=== PATIENT | male | born 1945 | race Caucasian/White ===

== ENCOUNTER → 2018-03-13 | Outpatient (CLI) | payer MEDICARE, BC ==
[2018-03-13 09:17] VITALS: BP 117/66; PULSE 63; RESP 20; TEMP 98.2; BMI 28.8
--- NOTE | 2018-03-13 09:36 | P.PN ---
Subjective Progress Note Date: 03/13/18 DATE OF SERVICE: 03/13/2018 CHIEF COMPLAINT: History of gastric bypass. HISTORY OF PRESENT ILLNESS: Ezequiel Cotter is a 71-year-old gentleman with a prior history of Hayder-en-Y gastric bypass performed in March 2012. He is now 4 years out. His initial weight was 257 pounds for his 5-foot 6-inch frame. His ideal body weight is 154 pounds. Today he comes in weighing 183 pounds. In one year he has already gained 8 pounds. Percent excess weight loss is maintained at 72%. Total weight loss is 74 pounds. Body mass index has been reduced from 41.6 down to 29.6. No reports of fevers or chills. No reports of abdominal pain. He does have history of constipation. He has intermittent blood in the stools. Upon further discussion with his , he has started to eat high-carbohydrate snacks. He also reports new-onset tremors. Last seen 08/23/16. Patient comes in with vomiting since June 2017. He went to the ER and had an upper endoscopy over 30 days ago. He was diagnosed yeast esophagitis. His symptoms are worse. PAST MEDICAL HISTORY: Morbid obesity Diabetes mellitus, type II, resolved Osteoarthritis of the knees, hips, and back, resolved Hypertension, resolved GERD, resolved Panniculitis Diverticulosis Gastroparesis, resolved PAST SURGICAL HISTORY EGD Colonoscopy Bilateral knee arthroscopy Cholecystectomy Bilateral cataract removal with lens replacement Left carpal tunnel release Bilateral retinal surgery Hayder-en-Y gastric bypass Paraesophageal hiatal hernia repair Panniculectomy. MEDICATIONS: 1. Vitamin B complex. 2. Flomax. 3. Cialis. 4. Multivitamin. 5. Neurontin. 6. Cymbalta. 7. Vitamin B12. 8. Calcium citrate. ALLERGIES: NONE. FAMILY HISTORY Strong family history of super morbid obesity. Mother . Father . Lung cancer and squamous cell cancer. SOCIAL HISTORY Denies IV drug use, ETOH, or tobacco use. Marital status is . Current occupation is retired. Has supportive family/friend network. College educated. REVIEW OF SYSTEMS: CONSTITUTIONAL: [place]y body weight of 154 pounds. Original weight of 257 pounds. Total weight loss maintained of 74 pounds. Percent excess weight loss 72%. BMI point reduction from 41.6 down to 29.6. Otherwise, 12 points. Weight gain of 8 pounds in one year. GASTROINTESTINAL: No reports of gastroesophageal reflux disease. Has intermittent blood in the stools. ENDOCRINE: Prior history of diabetes, resolved. MUSCULOSKELETAL: New onset lower neck pain. HEENT: Has headaches/migraines. Has trouble with vision. Denies troubles with hearing. Respiratory: Denies dypnea on exertion. Has daytime somnolence. Cardiac: Denies orthopnea or paroxysmal nocturnal dyspnea or history of palpitations. Psychiatric: Denies suicidal ideation. Vascular: Denies amaurosis fugax, stroke. Hematologic: Denies pulmonary embolisms, deep vein thrombosis, anemia, family coagulopathy, or blood transfusion. Neurologic: Denies dizziness, fainting, or weakness. Has numbness and tingling of feet. PHYSICAL EXAM: VITAL SIGNS: 97.3, 91, 16, 150/96, 5 feet 6 inches, 183 pounds. Body mass index 29.6. GENERAL: Well-developed male in no acute distress. ABDOMEN: Soft, nontender. No palpable incisional hernias. MUSCULOSKELETAL: No clubbing, cyanosis. GENERAL: Well-developed pleasant male in no acute distress. HEENT: No sclera icterus. Extraocular movements grossly intact. Moist buccal mucosa. Head is atraumatic, normocephalic. Hears conversational speech. No nasal drainage. NECK: Supple without lymphadenopathy. No JV distention. CHEST: Non-labored respirations and equal bilateral excursions. CARDIOVASCULAR: Regular rate and rhythm. Palpable 2+ radial pulses. NEUROLOGIC: No focal or lateralizing signs. PSYCH: Appropriate affect. Alert and oriented to person, place and time. LABS: Hemoglobin normal at 14.3. Hemoglobin A1c normal at 5.3. Percent iron saturation low at 16.2. Ferritin low at 9. Thiamine elevated at 125. Parathyroid hormone elevated at 127.9. Vitamin D normal at 37.2. Selenium elevated at 183. ASSESSMENT: 1. Prior history of morbid obesity due to excess calories. 2. Body mass index reduced from 41.6 down to 29.6. 3. Status post Hayder-en-Y gastric bypass. 4. Diabetes type 2, resolved. 5. Hypertension, resolved. 6. Dietary surveillance and counseling. 7. Thiamine toxicity. 8. Secondary hyperparathyroidism. 9. Selenium toxicity. 10. Esopohageal stricture. PLAN: 1. Recommend upper endoscopy with balloon for esophageal stricture. 2. Liquid diet only. 3. Take an antacid in the interim. 4. Recommend bariatric labs. Objective - Vital Signs Vital signs: Vital Signs Temp 98.2 F 03/13/18 09:06 Pulse 63 03/13/18 09:06 Resp 20 03/13/18 09:06 BP 117/66 03/13/18 09:06 Pulse Ox Intake & Output 03/12/18 03/13/18 03/13/18 18:59 06:59 18:59 Weight 81.148 kg
[2018-03-13 11:12] LABS: HGB 12.5 gm/dL (13.0-17.5); MCH 28.1 pg (25.0-35.0); MCHC 32.8 g/dL (31.0-37.0); MCV 85.8 fL (80.0-100.0); Mean Platelet Volume 7.5; Platelet Count 172 k/uL (150-450); RBC 4.43 m/uL (4.30-5.90); RDW 15.5 % (11.5-15.5); WBC 6.4 k/uL (3.8-10.6)
[2018-03-13 11:14] LABS: INR 1.2 (<1.2); Partial Thromboplastin Time 26.3 sec (22.0-30.0); Prothrombin Time 11.2 sec (9.0-12.0)
[2018-03-13 11:23] LABS: ALT 26 U/L (21-72); AST 34 U/L (17-59); Albumin 4.1 g/dL (3.5-5.0); Alkaline Phosphatase 100 U/L (38-126); Anion Gap 13 mmol/L; Blood Urea Nitrogen 11 mg/dL (9-20); Calcium 9.3 mg/dL (8.4-10.2); Carbon Dioxide 28 mmol/L (22-30); Chloride 104 mmol/L (98-107); Cholesterol 99 mg/dL (<200); Glucose 81 mg/dL (74-99); HDL Cholesterol 39 mg/dL (40-60); LDL Cholesterol,Calculated 46 mg/dL (0-99); Magnesium 2.2 mg/dL (1.6-2.3); Phosphorus 3.7 mg/dL (2.5-4.5); Potassium 4.4 mmol/L (3.5-5.1); Sodium 145 mmol/L (137-145); Total Bilirubin 0.5 mg/dL (0.2-1.3); Total Protein 6.9 g/dL (6.3-8.2); Triglycerides 69 mg/dL (<150)
[2018-03-13 16:58] LABS: Iron Saturation 14.42 (15.00-50.00)
[2018-03-13 17:05] LABS: Parathyroid Hormone Intact 118.1 pg/mL (14.0-72.0)
[2018-03-13 17:09] LABS: Folate, Serum >24.0 ng/mL; Vitamin D 25 Hydroxy 26.6 ng/mL (30.0-100.0)
[2018-03-13 20:10] LABS: Hemoglobin A1C 5.3 % (4.0-6.0)
[2018-03-17 06:35] LABS: Vitamin A 44 ug/dL (38-106)
[2018-03-17 06:59] LABS: Vitamin B1 60 ug/L (38-122)
[2018-03-17 17:22] LABS: Zinc, Serum 65 ug/dL (60-130)
== END | disposition home or self-care (01) ==
LOC: BARWHC3 08:31
PROVIDERS: ATTEND Surgery Plastic and Reconstructive Surgery
DX: Z09 Encounter for follow-up examination after completed treatment for conditions other than malignant neoplasm (principal); E66.01 Morbid (severe) obesity due to excess calories; T45.2X1A Poisoning by vitamins, accidental (unintentional), initial encounter; T56.891A Toxic effect of other metals, accidental (unintentional), initial encounter; N25.81 Secondary hyperparathyroidism of renal origin; K22.2 Esophageal obstruction; R25.1 Tremor, unspecified; M79.3 Panniculitis, unspecified; Z90.49 Acquired absence of other specified parts of digestive tract; Z98.84 Bariatric surgery status; Z68.29 Body mass index [BMI] 29.0-29.9, adult; Z71.3 Dietary counseling and surveillance; Z79.899 Other long term (current) drug therapy
CPT/HCPCS: 84255; 84134; 84425; 80061; 80053; 82607; 82728; 82525; 82746; 83540; 83550; 83735; 84100; 84443; 84590; 84630; 85027; 85610; 85730; 82306; 83970; 83036; 97803; 36415; G0463; 99211

== ENCOUNTER 2018-03-17 09:05 | Day surgery (SDC) | payer MEDICARE, BC ==
[2018-03-14 08:48] VITALS: BMI 28.7
--- NOTE | 2018-03-17 07:37 | P.GSHP ---
History of Present Illness H&P Date: 03/17/18 CHIEF COMPLAINT: GERD HISTORY OF PRESENT ILLNESS: The patient is a 73-year-old male who presents reports gastroesophageal reflux disease. Upper endoscopy was offered for further evaluation and management. PAST MEDICAL HISTORY: Please see list. PAST SURGICAL HISTORY: Please see list. MEDICATIONS: Please see list. ALLERGIES: Please see list. SOCIAL HISTORY: No illicit drug use FAMILY HISTORY: No reports of Crohn disease or ulcerative colitis. REVIEW OF ORGAN SYSTEMS: CONSTITUTIONAL: No reports of fevers or chills. GI: Denies any blood in stools or constipation. PHYSICAL EXAM: VITAL SIGNS: Stable GENERAL: Well-developed and pleasant in no acute distress. HEENT: No scleral icterus. Extraocular movements grossly intact. Moist buccal mucosa. NECK: Supple without lymphadenopathy. CHEST: Unlabored respirations. Equal bilateral excursions. CARDIOVASCULAR: Regular rate and rhythm. Distal 2+ pulses. ABDOMEN: Soft, nondistended. MUSCULOSKELETAL: No clubbing, cyanosis, or edema. ASSESSMENT: 1. Gastroesophageal reflux disease PLAN: 1. Recommend proceeding with an upper endoscopy Past Medical History Past Medical History: Cancer, Chest Pain / Angina, Diabetes Mellitus, GERD/ Reflux, Skin Disorder, Sleep Apnea/CPAP/BIPAP Additional Past Medical History / Comment(s): hx skin cancer. recent stress test neg per spouse, no cpap used, hx hiatal hernia, constipation, no meds for diabetes since wt loss-watches diet now, productive cough/choking and vomiting, "blood disorder yrs ago when in service"-spouse not sure what, bladder does not empty completely History of Any Multi-Drug Resistant Organisms: None Reported Past Surgical History: Bariatric Surgery, Cholecystectomy, Orthopedic Surgery Additional Past Surgical History / Comment(s): Gastric Bypass with repair of hiatal hernia, mariaelena carpal tunnel, mariaelena cataracts Past Anesthesia/Blood Transfusion Reactions: Previous Problems w/ Anesthesia Additional Past Anesthesia/Blood Transfusion Reaction / Comment(s): diff waking up after one surgery Smoking Status: Former smoker - Past Family History Father Family Medical History: Cancer Additional Family Medical History / Comment(s): skin cancer, arthritis, Mother Family Medical History: Cancer Medications and Allergies Home Medications Medication Instructions Recorded Confirmed Type Multivitamins, Thera [Multivitamin 1 each PO DAILY 05/19/14 03/14/18 History (formulary)] Tamsulosin HCl [Flomax] 0.8 mg PO DAILY 09/21/15 03/14/18 History Aspirin 81 mg PO DAILY 03/13/18 03/14/18 History Docusate [Colace] 100 mg PO DAILY PRN 03/13/18 03/14/18 History Ranitidine HCl [Zantac] 150 mg PO QAM 03/13/18 03/14/18 History Allergies Allergy/AdvReac Type Severity Reaction Status Date / Time No Known Allergies Allergy Verified 03/14/18 08:33
[~2018-03-17 09:05] MED LIST: LACTATED RINGERS 1,000 ML IV SCH
[2018-03-17 10:22] VITALS: TEMP 97.6
[2018-03-17] MEDS ORDERED: LIDOCAINE 1% 20 ML VIAL (10MG/ML) FOR IV START INTRADERMA ONE (10:22)
[2018-03-17] MEDS ORDERED: PROPOFOL 10 MG/ML 20 ML VIAL IV ONE (10:33)
[2018-03-17] MEDS ORDERED: fentaNYL (PF) 50 MCG/ML 2 ML AMP ONE (10:33)
[2018-03-17] MEDS ORDERED: LIDOCAINE 1% INJ 10MG/ML (20 ML MDV) ONE (10:33)
--- NOTE | 2018-03-17 10:46 | P.PCN ---
Date of Procedure: 03/17/18 Description of Procedure: PREOPERATIVE DIAGNOSIS: Dysphagia. s/p Hayder-en-y gastric bypass. Nausea with vomiting. Epigastric abdominal pain POSTOPERATIVE DIAGNOSIS: Dysphagia. s/p Hayder-en-y gastric bypass. Nausea with vomiting. Epigastric abdominal pain Esophageal dysmotility Hiatal hernia OPERATION: Esophagogastrojejunoscopy with balloon dilatation 20 mm. SURGEON: Cassie Toro MD ANESTHESIA: MAC. INDICATIONS: The patient is a 73-year-old female who presents with a history of dysphagia, gastric bypass including new-onset nausea and vomiting. Benefits and risks of the procedure were described. Informed consent was obtained. DESCRIPTION: The patient was brought into the endoscopy suite and laid in the left lateral decubitus position. After a timeout was confirmed, the procedure was initiated. An Olympus gastroscope was passed along the posterior oropharynx down to the distal esophagus where the squamocolumnar junction was unremarkable. The gastric pouch was entered. A gastrojejunal stricture of 18 mm was found as the adult gastroscope was 9.5 mm in size. A [employer] balloon dilator was placed through the scope. Final insufflation up to 20 mm was performed with a total of 2 minutes. The scope was advanced up to 60 cm from the incisors into the Hayder limb. The mucosa of the gastrojejunal anastomosis was intact. No chronic gastrojejunal marginal ulcer was encountered. No full-thickness injury was encountered. The GI tract was desufflated. The patient tolerated the procedure well. FINDINGS: Squamocolumnar junction unremarkable Stricture of approximately 18 mm encountered. No chronic gastrojejunal ulceration encountered. Successful balloon dilatation to 20 mm. Hiatal hernia, 2 cm Tertiary contractions of the esophagus Gastric pouch 3 cm. RECOMMENDATIONS: Upper endoscopy as needed Recommend esophageal manometry Plan - Discharge Summary New Discharge Prescriptions: No Action Multivitamins, Thera [Multivitamin (formulary)] 1 each PO DAILY Tamsulosin HCl [Flomax] 0.8 mg PO DAILY Ranitidine HCl [Zantac] 150 mg PO QAM Docusate [Colace] 100 mg PO DAILY PRN PRN Reason: Constipation Aspirin 81 mg PO DAILY Discharge Medication List Multivitamins, Thera [Multivitamin (formulary)] 1 each PO DAILY 05/19/14 [ History] Tamsulosin HCl [Flomax] 0.8 mg PO DAILY 09/21/15 [History] Aspirin 81 mg PO DAILY 03/13/18 [History] Docusate [Colace] 100 mg PO DAILY PRN 03/13/18 [History] Ranitidine HCl [Zantac] 150 mg PO QAM 03/13/18 [History]
[2018-03-17 11:14] VITALS: BP 109/66; PULSE 50; RESP 16
== END 2018-03-17 11:38 | disposition home or self-care (01) ==
LOC: ORWHC2ENDO 09:05
PROVIDERS: ATTEND Surgery Plastic and Reconstructive Surgery
DX: K31.89 Other diseases of stomach and duodenum (principal); K22.4 Dyskinesia of esophagus; K44.9 Diaphragmatic hernia without obstruction or gangrene; Z98.84 Bariatric surgery status; E11.9 Type 2 diabetes mellitus without complications; G47.33 Obstructive sleep apnea (adult) (pediatric); Z99.89 Dependence on other enabling machines and devices; Z79.82 Long term (current) use of aspirin; Z79.899 Other long term (current) drug therapy; Z85.828 Personal history of other malignant neoplasm of skin; Z87.891 Personal history of nicotine dependence
CPT/HCPCS: 43245; J2001; J3010; J2704; C1726

== ENCOUNTER → 2018-09-03 | Outpatient (CLI) | payer MEDICARE, BC ==
--- NOTE | 2018-09-03 16:28 | P.PN ---
Subjective Progress Note Date: 09/03/18 HPI: He has chronic cough and severe. He has severe fatigue. He has gained 7 pounds. He was evaluated by the laboratory inspector. He is yet to be evaluated by the lung doctor. ABDOMEN: Soft, nontender ASSESSMENT: 1. Morbid obesity 2. s/p gastric bypass PLAN: 1. Recommend sleep evaluation 2. Agree with lung doctor assessment 3. Recommend bariatric labs.
[2018-09-03 16:38] VITALS: BP 129/68; PULSE 54; TEMP 97.8; BMI 29.7
[2018-09-03 17:07] LABS: HCT 48.4 % (39.0-53.0); HGB 16.4 gm/dL (13.0-17.5); MCH 33.8 pg (25.0-35.0); MCHC 33.8 g/dL (31.0-37.0); MCV 99.9 fL (80.0-100.0); Macrocytosis Slight; Mean Platelet Volume 7.7; Platelet Count 169 k/uL (150-450); RBC 4.85 m/uL (4.30-5.90); RDW 14.1 % (11.5-15.5); WBC 7.8 k/uL (3.8-10.6)
[2018-09-03 17:17] LABS: INR 1.2 (<1.2); Partial Thromboplastin Time 26.3 sec (22.0-30.0); Prothrombin Time 11.4 sec (9.0-12.0)
[2018-09-04 03:36] LABS: Iron Saturation 17.97 (15.00-50.00)
[2018-09-04 03:45] LABS: Vitamin D 25 Hydroxy 63.1 ng/mL (30.0-100.0)
[2018-09-04 04:30] LABS: Albumin 4.2 g/dL (3.80-4.90); Albumin/Globulin Ratio 1.91 (1.20-2.10); Anion Gap 5.3 mmol/L (4.00-12.00); Calcium 8.8 mg/dL (8.7-10.3); Carbon Dioxide 28.7 mmol/L (21.6-31.8); Folate, Serum 21.2 ng/mL; Globulin 2.2 g/dL (2.1-3.7); LDL Cholesterol,Calculated 31.8 mg/dL (0.0-131.0); Parathyroid Hormone Intact 146.9 pg/mL (14.0-72.0); Phosphorus 3.7 mg/dL (2.4-5.1); Potassium 4.3 mmol/L (3.5-5.5); Total Bilirubin 0.4 mg/dL (0.3-1.2); Total Protein 6.4 g/dL (6.2-8.2); VLDL Calculation 13.2 mg/dL (5.00-40.00)
[2018-09-04 12:21] LABS: Zinc, Serum 62 ug/dL (60-130)
[2018-09-05 05:45] LABS: Vitamin A 42 ug/dL (38-106)
[2018-09-05 12:02] LABS: Vitamin B1 96 ug/L (38-122)
== END | disposition home or self-care (01) ==
LOC: BARWHC3 15:09
PROVIDERS: ATTEND Surgery Plastic and Reconstructive Surgery
DX: E66.01 Morbid (severe) obesity due to excess calories (principal); E21.1 Secondary hyperparathyroidism, not elsewhere classified; E89.1 Postprocedural hypoinsulinemia; D50.9 Iron deficiency anemia, unspecified; K90.9 Intestinal malabsorption, unspecified; E55.9 Vitamin D deficiency, unspecified; K76.9 Liver disease, unspecified; K50.90 Crohn's disease, unspecified, without complications; N19 Unspecified kidney failure; Z68.29 Body mass index [BMI] 29.0-29.9, adult; Z98.84 Bariatric surgery status
CPT/HCPCS: 84255; 84134; 84425; 80061; 80053; 82607; 82728; 82525; 82746; 83540; 83550; 83735; 84100; 84443; 84590; 84630; 85027; 85610; 85730; 82306; 83970; 83036; 36415; G0463; 99211

== ENCOUNTER → 2019-11-18 | Outpatient (CLI) | payer BC, MEDICARE ==
--- NOTE | 2019-11-18 17:49 | P.PN ---
Subjective Progress Note Date: 11/18/19 He came in with a new pacemeaker. He is seeing Dr. Miller for new immune deficiency. He reports vomiting for 2 days in a row. Soft foods is not a problem. He has trouble with textured foods. He has 10 pounds weight gain in 5 years. He has chronic clearing of his throat. Weight loss of 80 pounds. She is seeing Stephanie Baxter. He reports lower abdominal pain. PLAN: 1. Upper scope 2. Recommend labs 3. Recommend esophagram
[2019-11-18 18:11] VITALS: BP 126/82; PULSE 76; RESP 16; TEMP 97.2; BMI 32.1
== END | disposition home or self-care (01) ==
LOC: BARWHC3 15:09
PROVIDERS: ATTEND Surgery Plastic and Reconstructive Surgery
DX: R11.10 Vomiting, unspecified (principal); R10.30 Lower abdominal pain, unspecified
CPT/HCPCS: 99211

== ENCOUNTER → 2019-12-18 | Outpatient (CLI) | payer MEDICARE ==
[2019-12-18 16:36] LABS: HCT 50.4 % (39.0-53.0); HGB 16.8 gm/dL (13.0-17.5); MCH 32.6 pg (25.0-35.0); MCHC 33.4 g/dL (31.0-37.0); MCV 97.8 fL (80.0-100.0); Platelet Count 159 k/uL (150-450); RBC 5.15 m/uL (4.30-5.90); RDW 13.9 % (11.5-15.5); WBC 8.2 k/uL (3.8-10.6)
[2019-12-18 16:52] LABS: Partial Thromboplastin Time 25.1 sec (22.0-30.0); Prothrombin Time 10.2 sec (9.0-12.0)
[2019-12-18 23:43] LABS: Hemoglobin A1C 5.1 % (4.0-6.0)
[2019-12-19 00:13] LABS: % Iron Saturation 36.3 (15.00-50.00); Albumin/Globulin Ratio 1.6 (1.60-3.17); Anion Gap 9.8 mmol/L (4.00-12.00); Calcium 8.9 mg/dL (8.7-10.3); Carbon Dioxide 26.2 mmol/L (21.6-31.8); Chol/HDL Ratio 3.24; Globulin 2.5 g/dL (1.6-3.3); LDL Cholesterol,Calculated 41.2 mg/dL (0.0-131.0); Magnesium 1.8 mg/dL (1.5-2.4); Non-African American GFR(CKD) 73.3 (60.0-200.0); Phosphorus 3.7 mg/dL (2.4-5.1); Potassium 3.8 mmol/L (3.5-5.5); Total Bilirubin 0.3 mg/dL (0.3-1.2); Total Protein 6.5 g/dL (6.2-8.2); VLDL Calculation 34.8 mg/dL (5.00-40.00)
[2019-12-19 00:21] LABS: Ferritin 80.7 ng/mL (22.0-322.0)
[2019-12-19 00:53] LABS: Folate, Serum 19.3 ng/mL
[2019-12-21 12:49] LABS: Zinc, Serum 59 ug/dL (60-130)
[2019-12-22 08:06] LABS: Vitamin A 62 ug/dL (38-106)
== END | disposition home or self-care (01) ==
LOC: LABWHC1 15:50
PROVIDERS: ATTEND Surgery Plastic and Reconstructive Surgery
DX: E66.01 Morbid (severe) obesity due to excess calories (principal); E21.1 Secondary hyperparathyroidism, not elsewhere classified; E89.1 Postprocedural hypoinsulinemia; D50.9 Iron deficiency anemia, unspecified; K90.9 Intestinal malabsorption, unspecified; E55.9 Vitamin D deficiency, unspecified; K76.9 Liver disease, unspecified; N19 Unspecified kidney failure; K50.90 Crohn's disease, unspecified, without complications
CPT/HCPCS: 36415; 80053; 80061; 82306; 82525; 82607; 82728; 82746; 83036; 83540; 83550; 83735; 83970; 84100; 84134; 84255; 84425; 84443; 84590; 84630; 85027; 85610; 85730

== ENCOUNTER 2019-12-21 06:11 | Day surgery (SDC) | payer MEDICARE ==
[2019-12-17 10:00] VITALS: BMI 34.1
--- NOTE | 2019-12-20 14:12 | P.GSHP ---
History of Present Illness H&P Date: 12/21/19 CHIEF COMPLAINT: GERD HISTORY OF PRESENT ILLNESS: The patient is a 74-year-old male who presents reports gastroesophageal reflux disease. Upper endoscopy was offered for further evaluation and management. PAST MEDICAL HISTORY: Please see list. PAST SURGICAL HISTORY: Please see list. MEDICATIONS: Please see list. ALLERGIES: Please see list. SOCIAL HISTORY: No illicit drug use FAMILY HISTORY: No reports of Crohn disease or ulcerative colitis. REVIEW OF ORGAN SYSTEMS: CONSTITUTIONAL: No reports of fevers or chills. GI: Denies any blood in stools or constipation. PHYSICAL EXAM: VITAL SIGNS: Stable GENERAL: Well-developed and pleasant in no acute distress. HEENT: No scleral icterus. Extraocular movements grossly intact. Moist buccal mucosa. NECK: Supple without lymphadenopathy. CHEST: Unlabored respirations. Equal bilateral excursions. CARDIOVASCULAR: Regular rate and rhythm. Distal 2+ pulses. ABDOMEN: Soft, nondistended. MUSCULOSKELETAL: No clubbing, cyanosis, or edema. ASSESSMENT: 1. Gastroesophageal reflux disease PLAN: 1. Recommend proceeding with an upper endoscopy Past Medical History Past Medical History: Cancer, Chest Pain / Angina, Diabetes Mellitus, GERD/Reflux, Skin Disorder, Sleep Apnea/CPAP/BIPAP Additional Past Medical History / Comment(s): productive cough/choking and vomiting,spouse not sure why taking gamunex injections or augmentin, hx skin cancer. recent stress test, no cpap used, hx hiatal hernia, constipation, no meds for diabetes since wt loss-watches diet now, "blood disorder yrs ago when in service"-spouse not sure what, bladder does not empty completely History of Any Multi-Drug Resistant Organisms: None Reported Past Surgical History: Bariatric Surgery, Cholecystectomy, Orthopedic Surgery, Pacemaker Additional Past Surgical History / Comment(s): Gastric Bypass with repair of hiatal hernia, mraiaelena carpal tunnel, mariaelena cataracts,pacemaker 10-08-19 dr natarajan,knee surgery Past Anesthesia/Blood Transfusion Reactions: Previous Problems w/ Anesthesia Additional Past Anesthesia/Blood Transfusion Reaction / Comment(s): diff waking up after one surgery Type of Cardiac Device: Permanent Pacemaker Device Placement Date:: 10-08-19 Smoking Status: Former smoker - Past Family History Father Family Medical History: Cancer Additional Family Medical History / Comment(s): skin cancer, arthritis, Mother Family Medical History: Cancer Medications and Allergies Home Medications Medication Instructions Recorded Confirmed Type Multivitamins, Thera [Multivitamin 1 each PO DAILY 05/19/14 12/17/19 History (formulary)] Tamsulosin HCl [Flomax] 0.8 mg PO DAILY 09/21/15 12/17/19 History Aspirin 81 mg PO DAILY 03/13/18 12/17/19 History Calcium Carbonate [Calcium] 600 mg PO BID #60 tablet 04/02/18 12/17/19 Rx Iron 65 mg PO BID 11/19/19 12/17/19 History Amoxic-Pot Clav 875-125Mg 2 tab PO MOWEFR 12/17/19 12/17/19 History [Augmentin 875-125] Gamunex Injections 1 dose SQ Q30D 12/17/19 12/17/19 History Allergies Allergy/AdvReac Type Severity Reaction Status Date / Time No Known Allergies Allergy Verified 12/17/19 09:50
[~2019-12-21 06:11] MED LIST changes: +LIDOCAINE 1% 20 ML VIAL (10MG/ML) FOR IV START INTRADERMA PRN; +MIDAZOLAM 2 MG/2 ML VIAL IV PRN
[2019-12-21 06:47] VITALS: TEMP 97.2
[2019-12-21 06:53] LABS: Glucose,Whole Blood 83 mg/dL (75-99)
[2019-12-21] MEDS ORDERED: LIDOCAINE 1% INJ 10MG/ML (20 ML MDV) ONE (07:16)
[2019-12-21] MEDS ORDERED: PROPOFOL 10 MG/ML 20 ML VIAL IV ONE (07:16)
[2019-12-21 07:42] VITALS: PULSE 61; RESP 16
[2019-12-21 07:51] VITALS: BP 116/80
--- NOTE | 2019-12-21 09:17 | P.PCN ---
Date of Procedure: 12/21/19 Description of Procedure: PREOPERATIVE DIAGNOSIS: Dysphagia. Gastroesophageal reflux disease Epigastric abdominal pain POSTOPERATIVE DIAGNOSIS: Dysphagia. Gastroesophageal reflux disease Epigastric abdominal pain Gastric ulcer Gastrojejunal obstruction Diaphragmatic hiatal hernia 2 cm OPERATION: Esophagogastrojejunoscopy with balloon dilatation from 15 to 20 mm. SURGEON: Cassie Toro MD ANESTHESIA: MAC. INDICATIONS: The patient is a 74-year-old male who presents with a history of dysphagia and gastroesophageal reflux disease. Benefits and risks of the procedure were described. Informed consent was obtained. DESCRIPTION: The patient was brought into the endoscopy suite and laid in the left lateral decubitus position. After a timeout was confirmed, the procedure was initiated. An Olympus gastroscope was passed along the posterior oropharynx down to the distal esophagus where the squamocolumnar junction was unremarkable. The gastric pouch was entered. A gastrojejunal stricture of 15 mm was found as the adult gastroscope was 9.5 mm in size. A BRAIN balloon dilator was placed through the scope. Final insufflation up to 20 mm was performed with a total of 2 minutes. The scope was advanced up to 60 cm from the incisors into the Hayder limb. The mucosa of the gastrojejunal anastomosis was intact. A gastric ulcer was encountered in the pouch. No full-thickness injury was encountered. The GI tract was desufflated. The patient tolerated the procedure well. FINDINGS: Squamocolumnar junction unremarkable at 33 cm. Stricture of approximately 15 mm encountered. Superficial gastric ulcer without bleeding Successful balloon dilatation to 20 mm. Diaphragmatic hiatus at 35 cm. Diaphragmatic hiatal hernia 2 cm RECOMMENDATIONS: 1. Start omeprazole of at least 4 weeks. 2. Discontinue NSAIDs Plan - Discharge Summary Discharge Rx Participant: No New Discharge Prescriptions: New Omeprazole [PriLOSEC] 40 mg PO DAILY #30 cap Continue Multivitamins, Thera [Multivitamin (formulary)] 1 each PO DAILY Tamsulosin HCl [Flomax] 0.8 mg PO DAILY Calcium Carbonate [Calcium] 600 mg PO BID #60 tablet Iron 65 mg PO BID Amoxic-Pot Clav 875-125Mg [Augmentin 875-125] 2 tab PO MOWEFR Gamunex Injections 1 dose SQ Q30D Discontinued Aspirin 81 mg PO DAILY Discharge Medication List Multivitamins, Thera [Multivitamin (formulary)] 1 each PO DAILY 05/19/14 [History] Tamsulosin HCl [Flomax] 0.8 mg PO DAILY 09/21/15 [History] Calcium Carbonate [Calcium] 600 mg PO BID #60 tablet 04/02/18 [Rx] Iron 65 mg PO BID 11/19/19 [History] Amoxic-Pot Clav 875-125Mg [Augmentin 875-125] 2 tab PO MOWEFR 12/17/19 [History] Gamunex Injections 1 dose SQ Q30D 12/17/19 [History] Omeprazole [PriLOSEC] 40 mg PO DAILY #30 cap 12/21/19 [Rx] Follow up Appointment(s)/Referral(s): Cassie Toro MD [STAFF PHYSICIAN] - 12/30/19 ([facility] [place] [place] [facility] - 12/30/19 Patient Instructions/Handouts: *Surgery [facility] - (Anesthesia) Endoscopy Discharge Instructions, Upper Endoscopy (GEN), Esophageal Dilation (GEN) Discharge Disposition: HOME SELF-CARE
== END 2019-12-21 08:13 | disposition home or self-care (01) ==
LOC: ORWHC2ENDO 06:11
PROVIDERS: ATTEND Surgery Plastic and Reconstructive Surgery
DX: K95.89 Other complications of other bariatric procedure (principal); K25.9 Gastric ulcer, unspecified as acute or chronic, without hemorrhage or perforation; K21.9 Gastro-esophageal reflux disease without esophagitis; K44.9 Diaphragmatic hernia without obstruction or gangrene; E11.9 Type 2 diabetes mellitus without complications; R33.9 Retention of urine, unspecified; G47.30 Sleep apnea, unspecified; Z85.828 Personal history of other malignant neoplasm of skin; F32.9 Major depressive disorder, single episode, unspecified; Z98.42 Cataract extraction status, left eye; Z98.41 Cataract extraction status, right eye; Z95.0 Presence of cardiac pacemaker; Z87.891 Personal history of nicotine dependence; Z82.61 Family history of arthritis; Z80.8 Family history of malignant neoplasm of other organs or systems; Z79.899 Other long term (current) drug therapy; Z79.82 Long term (current) use of aspirin
CPT/HCPCS: 43245; J2001; J2704; C1726

== ENCOUNTER → 2019-12-30 | Outpatient (CLI) | payer MEDICARE ==
[2019-12-30 13:46] VITALS: BP 120/80; PULSE 60; RESP 16; TEMP 97.7; BMI 32.3
--- NOTE | 2019-12-30 16:54 | P.PN ---
Progress Note - Text Progress Note Date: 12/30/19 Patient not seen due to cancellation from emergency surgery
== END | disposition home or self-care (01) ==
LOC: BARWHC3 12:19
PROVIDERS: ATTEND Surgery Plastic and Reconstructive Surgery
DX: Z53.29 Procedure and treatment not carried out because of patient's decision for other reasons (principal)
CPT/HCPCS: 99211